=== PATIENT | male | born 1940 | race Caucasian/White ===

== ENCOUNTER 2017-04-01 05:45 | Observation (INO) | payer OTHER ==
[~2017-04-01] VITALS: Ht 165.1 cm; Wt 72.4 kg
[~2017-04-01 05:45] MED LIST: AMLO5TAB2 PO; ASPI-496 PO; ATOR20TA9 PO; CYAN1TAB29 PO; DIAZ10TA PO; DOCU100T6 PO; HYDR-3144 PO; HYDR2TAB29 PO; MULT-257 PO; OMEG300C5 PO
[2017-04-01] MEDS ORDERED: LACTATED RINGERS 1,000 ML IV SCH (06:26)
[2017-04-01 06:30] VITALS: BP 147/87
[2017-04-01] MEDS ORDERED: BUPIVACAINE/PF-EPI 0.5% 1:200K ONE (06:54)
[2017-04-01] MEDS ORDERED: BACITRACIN 50,000 UNIT ONE (06:55)
[2017-04-01] MEDS ORDERED: THROMBIN 5,000 UNIT VIAL TP ONE (06:55)
[2017-04-01] MEDS ORDERED: MIDAZOLAM 1 MG/ML, 2ML ONE (07:19)
[2017-04-01] MEDS ORDERED: FENTANYL PF 250 MCG/5ML ONE (07:19)
[2017-04-01] MEDS ORDERED: ONDANSETRON 2MG/ML, 2ML ONE (07:27)
[2017-04-01] MEDS ORDERED: CEFAZOLIN 1,000 MG ONE (07:27)
[2017-04-01] MEDS ORDERED: DEXAMETHASONE 4 MG/ML, 1ML ONE (07:27)
[2017-04-01] MEDS ORDERED: ROCURONIUM 10 MG/ML ONE (07:27)
[2017-04-01] MEDS ORDERED: PROPOFOL 10 MG/ML, 20ML ONE (07:27)
[2017-04-01] MEDS ORDERED: PHENYLEPHRINE 10 MG/ML ONE (07:27)
[2017-04-01] MEDS ORDERED: SUCCINYLCHOLINE 20 MG/ML, 10ML ONE (07:27)
[2017-04-01] MEDS ORDERED: ONDANSETRON 2MG/ML, 2ML IVPush PRN ×2 (08:00→09:30)
[2017-04-01] MEDS ORDERED: hydrALAzine 20 MG/ML, 1ML IV PRN (08:00)
[2017-04-01] MEDS ORDERED: MIDAZOLAM 1 MG/ML, 2ML IV PRN (08:00)
[2017-04-01] MEDS ORDERED: PROMETHAZINE 25 MG/ML, 1ML IV PRN (08:00)
[2017-04-01] MEDS ORDERED: LABETALOL 5MG/ML, 20ML IV PRN (08:00)
[2017-04-01] MEDS ORDERED: OXYcodone 5 MG/5 ML ORAL.SOL UDC PO PRN (08:00)
[2017-04-01] MEDS ORDERED: ACETAMINOPHEN 325 MG TABLET PO PRN (08:00)
[2017-04-01] MEDS ORDERED: FENTANYL PF 100 MCG/2ML IV PRN (08:00)
[2017-04-01] MEDS ORDERED: ALBUTEROL SULFATE 2.5 MG/3 ML NPPB PRN (08:00)
[2017-04-01] MEDS ORDERED: HYDROmorphone 1 MG/ML, 1ML IV PRN (08:00)
[2017-04-01] MEDS ORDERED: MEPERIDINE/PF 25MG/0.5ML IVPush PRN (08:00)
[2017-04-01] MEDS ORDERED: ACETAMINOPHEN 650 MG/20.3 ML UDC ONE (09:21)
[2017-04-01] MEDS ORDERED: OXYcodone 5 MG/5 ML ORAL.SOL UDC ONE (09:21)
[2017-04-01] MEDS ORDERED: ACETAMINOPHEN 325 MG/10.15 ML UDC ONE (09:22)
[2017-04-01] MEDS ORDERED: PROMETHAZINE 25 MG/ML, 1ML IM PRN (09:30)
[2017-04-01] MEDS ORDERED: DIPHENHYDRAMINE 50 MG CAPSULE PO PRN (09:30)
[2017-04-01] MEDS ORDERED: PHARMACY MAY ADJ FOR RENAL FX MC PRN (09:30)
[2017-04-01] MEDS ORDERED: BISACODYL 10 MG SUPP PR PRN (09:30)
[2017-04-01] MEDS ORDERED: SENNA/DOCUSATE TABLET PO PRN (09:30)
[2017-04-01] MEDS ORDERED: HYDROmorphone PCA 30 MG/30 ML IV PRN (09:30)
[2017-04-01] MEDS ORDERED: MAGNESIUM HYDROXIDE 8%, 30ML UDC PO PRN (09:30)
[2017-04-01] MEDS ORDERED: LABETALOL 5MG/ML, 20ML IVPush PRN (09:30)
[2017-04-01] MEDS ORDERED: HYDROmorphone 2MG TABLET PO PRN (09:30)
[2017-04-01] MEDS ORDERED: CYCLOBENZAPRINE 10 MG TABLET PO PRN (09:30)
[2017-04-01] MEDS ORDERED: HYDROmorphone PCA 30 MG/30 ML ONE (09:59)
[2017-04-01] MEDS ORDERED: HYDROmorphone 1 MG/ML, 1ML ONE (10:16)
[2017-04-01] MEDS: NS + 20MEQ KCL 1,000 ML IV SCH (12:12)
[2017-04-01 14:00] VITALS: BP 119/70
[2017-04-01] MEDS: CEFAZOLIN PMX 1GM/50ML 50 ML IVPB SCH ×2 (15:45→23:45)
[2017-04-01 19:19] VITALS: BP 116/69
[2017-04-01] MEDS: SODIUM CHLORIDE FLUSH 10ML SYR IVF SCH (22:38)
[2017-04-01] MEDS: ATORVASTATIN 20 MG TABLET PO SCH (22:38)
[2017-04-01] MEDS ORDERED: LIDOCAINE GEL 2%, 5ML TP ONE (23:00)
[2017-04-01 23:45] VITALS: BP 110/61
[2017-04-01] MEDS: HYDROcodone/APAP 5/325 TABLET PO PRN (23:51)
[2017-04-02] MEDS: NS + 20MEQ KCL 1,000 ML IV SCH ×2 (00:57→12:10)
[2017-04-02] MEDS: HYDROcodone/APAP 5/325 TABLET PO PRN ×2 (03:45→08:29)
[2017-04-02 03:53] VITALS: BP 117/69
[2017-04-02 07:09] VITALS: BP 122/70
[2017-04-02] MEDS: AMLODIPINE 5 MG TABLET PO SCH (08:29)
[2017-04-02] MEDS: SODIUM CHLORIDE FLUSH 10ML SYR IVF SCH ×2 (08:30→21:14)
[2017-04-02] MEDS ORDERED: LIDOCAINE GEL 2%, 5ML TP ONE (09:00)
[2017-04-02] MEDS: HYDROcodone/APAP 10/325 MG TABLET PO PRN ×4 (12:22→21:14)
[2017-04-02 14:04] VITALS: BP 125/72
[2017-04-02 20:21] VITALS: BP 112/68
[2017-04-02] MEDS: ATORVASTATIN 20 MG TABLET PO SCH (21:13)
[2017-04-03] MEDS: HYDROcodone/APAP 10/325 MG TABLET PO PRN ×3 (01:27→11:04)
[2017-04-03] MEDS: NS + 20MEQ KCL 1,000 ML IV SCH (01:30)
[2017-04-03 01:40] VITALS: BP 121/66
[2017-04-03 08:15] VITALS: BP 146/73
[2017-04-03] MEDS ORDERED: TAMSULOSIN 0.4 MG CAP.ER.24H PO ONE (08:30)
[2017-04-03] MEDS: AMLODIPINE 5 MG TABLET PO SCH (09:03)
[2017-04-03] MEDS: SODIUM CHLORIDE FLUSH 10ML SYR IVF SCH (09:04)
[2017-04-03 10:26] VITALS: BP 133/76
[2017-04-03] MEDS ORDERED: CYCL5TAB PO (11:35)
[2017-04-03] MEDS ORDERED: TAMS-11 PO (11:35)
== END 2017-04-03 11:50 | disposition home or self-care (01) ==
LOC: OUT 05:45 → ORIP 09:19 → 4NOR 11:08 → DCLOUNGE 04-03 11:25
PROVIDERS: ADMIT Neurological Surgery; ATTEND Neurological Surgery
DX: M48.06 Spinal stenosis, lumbar region (principal); M51.16 Intervertebral disc disorders with radiculopathy, lumbar region; R33.9 Retention of urine, unspecified; L90.5 Scar conditions and fibrosis of skin; I10 Essential (primary) hypertension
CPT/HCPCS: 63047; 63048; 72100; 96365; 96375; 97162; 97165; G0378; J0330; J0690; J1100; J1170; J2250; J2370; J2405; J2704; J3010; J3480; J7120